=== PATIENT | male | born 1950 | race Caucasian/White ===

== ENCOUNTER → 2016-10-21 | Outpatient (CLI) | payer MEDICARE ==
[~2016-10-21] MED LIST: ASP81EC PO; ATOR20TA50 PO; LISI40TA PO
[2016-10-21 07:51] LABS: Basophils # (auto) 0 uL; Basophils % (auto) 0.2 % (0.0-2.0); Eosinophils # (auto) 0.2 uL; Hematocrit 46.2 % (41.0-53.0); Hemoglobin 15.6 g/dL (13.5-17.5); Lymphocytes # (auto) 1.1 uL; Lymphocytes % (auto) 12.4 % (10.0-50.0); Mean Corpuscular Hemoglobin 30.8 pg (28.0-32.0); Mean Corpuscular Hgb Conc. 33.8 g/dL (32.0-36.0); Mean Corpuscular Volume 91.1 fL (80.0-100.0); Mean Platelet Volume 6.3 fL (7.4-10.4); Monocytes # (auto) 0.6 uL; Monocytes % (auto) 6.3 % (0.0-12.0); Neutrophils % (auto) 79.1 % (37.0-80.0); Platelet Count (auto) 311 10^3/uL (140-450); Red Cell Distribution Width 15.2 % (11.6-16.0); White Blood Cell 8.8 10^3/uL (4.4-10.8)
[2016-10-21 08:09] LABS: Urine Bilirubin Negative (Negative); Urine Color Yellow (Yellow); Urine Glucose Normal (Normal); Urine Ketone Negative (Negative); Urine Nitrite Negative (Negative); Urine RBC 9 /hpf (0 - 3); Urine Squamous Epithelial Cell FEW /hpf (<5); Urine Urobilinogen Normal (Negative); Urine pH 6.5 (5.0-8.0)
[2016-10-21 08:13] LABS: Urine Blood 1+ /uL (Negative)
[2016-10-21 08:18] LABS: BUN/Creatinine Ratio 11.4; Bilirubin, Total 0.7 mg/dL (0.2-1.0); Calcium 8.9 mg/dL (8.5-10.1); Total Protein 7.5 g/dL (6.4-8.2)
== END | disposition home or self-care (01) ==
LOC: LAB 07:24
DX: Z12.11 Encounter for screening for malignant neoplasm of colon (principal); I10 Essential (primary) hypertension; N40.1 Benign prostatic hyperplasia with lower urinary tract symptoms; E78.5 Hyperlipidemia, unspecified
CPT/HCPCS: 36415; 80053; 80061; 81001; 84153; 84443; 85025

== ENCOUNTER 2020-03-24 15:43 | Inpatient (IN) | payer MEDICARE ==
[~2020-03-24] VITALS: Ht 177.8 cm; Wt 76.8 kg
[~2020-03-24 15:43] MED LIST changes: -ASP81EC PO; +ASPI-394 PO; -LISI40TA PO; +LISI40TA11 PO
[2020-03-24 17:10] LABS: Basophils # (auto) 0.1 10 ^3/uL (0-0.2); Basophils % (auto) 1.1 % (0.0-2.0); Eosinophils # (auto) 0.2 10 ^3/uL (0-0.8); Eosinophils % (auto) 2.2 % (0.0-7.0); Hematocrit 46.4 % (41.0-53.0); Hemoglobin 15.2 g/dL (13.5-17.5); Lymphocytes # (auto) 0.8 10 ^3/uL (0.4-5.4); Lymphocytes % (auto) 9.9 % (10.0-50.0); Mean Corpuscular Hemoglobin 30.5 pg (28.0-32.0); Mean Corpuscular Hgb Conc. 32.7 g/dL (32.0-36.0); Mean Corpuscular Volume 93.3 fL (80.0-100.0); Monocytes # (auto) 0.6 10 ^3/uL (0-1.3); Monocytes % (auto) 7.8 % (0.0-12.0); Neutrophils # (auto) 6.4 10 ^3/uL (1.6-8.6); Nucleated Red Blood Cells % 0.1 %; Platelet Count (auto) 254 10^3/uL (140-450); Red Blood Cells 4.97 10^6/uL (4.5-5.90); Red Cell Distribution Width 15.3 % (11.8-14.3); White Blood Cell 8.1 10^3/uL (4.4-10.8)
[2020-03-24 17:29] LABS: Albumin 3.5 g/dL (3.4-5.0); Anion Gap 5 (5-15); Blood Urea Nitrogen 18 mg/dL (7-18); Calcium 8.4 mg/dL (8.5-10.1); Carbon Dioxide 30 mmol/L (21-32); Chloride 108 mmol/L (98-107); Glucose 139 mg/dL (74-106); Potassium 3.7 mmol/L (3.5-5.1); Sodium 143 mmol/L (136-145)
[2020-03-24 17:37] LABS: Alanine Aminotransferase 12 U/L (16-61); Alkaline Phosphatase 79 U/L (45-117); Aspartate Aminotransferase 10 U/L (15-37); BUN/Creatinine Ratio 16.7; Bilirubin, Total 0.6 mg/dL (0.2-1.0); GFR African American 87 mL/min; GFR Non-African American 72 mL/min; Total Protein 7.1 g/dL (6.4-8.2)
[2020-03-24 18:03] LABS: INR 1.03 (0.9-1.15); Partial Thromboplastin Time 28.6 sec (23.0-31.2)
[2020-03-24] MEDS ORDERED: cloNIDine 0.2 mg/24hr 7DAY PATCH TD ONE (19:15)
[2020-03-24] MEDS ORDERED: cloNIDine HCL 0.1 MG TAB PO ONE (20:00)
[2020-03-24] MEDS ORDERED: IODIXANOL 320MG/ML 100ML BTL IV ONE (21:49)
[2020-03-24] MEDS ORDERED: ENALAPRILAT 1.25 MG/ML-1ML VIAL IV ONE (22:00)
[2020-03-24] MEDS ORDERED: ONDANSETRON HCL 4 MG/2 ML VIAL IV PRN (22:00)
[2020-03-24] MEDS ORDERED: ACETAMINOPHEN 325 MG TAB PO PRN (22:00)
[2020-03-24] MEDS ORDERED: MORPHINE SULF INJ 2 MG/ML SYRINGE 1ML IV PRN (22:00)
[2020-03-24] MEDS ORDERED: NITROGLYCERIN 0.4 MG SL TAB SL PRN (22:00)
[2020-03-24] MEDS ORDERED: TEMAZEPAM 15 MG CAP PO PRN (22:00)
[2020-03-24] MEDS ORDERED: IOHEXOL 350 MG/ML 100ML IJ ONE (22:02)
[2020-03-24] MEDS: ATORVASTATIN 20 MG TAB PO SCH (22:40)
[2020-03-24] MEDS: FAMOTIDINE 20 MG TAB PO SCH (22:40)
[2020-03-24] MEDS: cloNIDine HCL 0.1 MG TAB PO PRN (23:51)
[2020-03-25 03:16] LABS: Urine Bacteria NONE SEEN /hpf (None Seen); Urine Blood Negative /uL (Negative); Urine Mucus FEW (None Seen); Urine WBC 9 /hpf (0 - 3)
[2020-03-25] MEDS ORDERED: hydrALAZINE HCL 20 MG/ML VL IV ONE (05:30)
[2020-03-25 08:21] LABS: Basophils # (auto) 0 10 ^3/uL (0-0.2); Basophils % (auto) 0.6 % (0.0-2.0); Eosinophils # (auto) 0.1 10 ^3/uL (0-0.8); Eosinophils % (auto) 1.1 % (0.0-7.0); Hematocrit 46.1 % (41.0-53.0); Hemoglobin 15.1 g/dL (13.5-17.5); Lymphocytes # (auto) 0.7 10 ^3/uL (0.4-5.4); Lymphocytes % (auto) 8.3 % (10.0-50.0); Mean Corpuscular Hemoglobin 30.5 pg (28.0-32.0); Mean Corpuscular Hgb Conc. 32.7 g/dL (32.0-36.0); Mean Corpuscular Volume 93.3 fL (80.0-100.0); Monocytes # (auto) 0.5 10 ^3/uL (0-1.3); Monocytes % (auto) 6.2 % (0.0-12.0); Neutrophils # (auto) 6.7 10 ^3/uL (1.6-8.6); Neutrophils % (auto) 83.8 % (37.0-80.0); Nucleated Red Blood Cells % 0.1 %; Platelet Count (auto) 243 10^3/uL (140-450); Red Blood Cells 4.94 10^6/uL (4.5-5.90); Red Cell Distribution Width 15.3 % (11.8-14.3)
[2020-03-25 08:41] LABS: Calcium 8.9 mg/dL (8.5-10.1); Potassium 3.7 mmol/L (3.5-5.1)
[2020-03-25 08:42] LABS: BUN/Creatinine Ratio 17.6
[2020-03-25] MEDS: FAMOTIDINE 20 MG TAB PO SCH ×2 (10:00→22:36)
[2020-03-25] MEDS ORDERED: ASPirin 81 mg TAB PO SCH (10:00)
[2020-03-25] MEDS ORDERED: LISINOPRIL 20 MG TAB PO SCH (10:00)
[2020-03-25] MEDS ORDERED: ENOXAPARIN SOD 40 MG/0.4 ML SYRINGE SC SCH (10:00)
[2020-03-25] MEDS ORDERED: METOPROLOL TARTRATE 50 MG TAB PO ONE (12:30)
[2020-03-25 12:59] LABS: Cholesterol 203 mg/dL (< 200)
[2020-03-25 13:00] VITALS: BP 172/85
[2020-03-25 13:02] LABS: HDL Cholesterol 39 mg/dL (40-59); LDL Cholesterol 156 mg/dL (< 100); Triglycerides 110 mg/dL (< 150)
--- NOTE | 2020-03-25 13:03 | NUR ---
Patient Arrived Patient arrived to unit. No signs of distress at this time. Respirations even and unlabored. Safety precautions in place, patient encouraged to call PRN. Will continue to monitor.
--- NOTE | 2020-03-25 13:30 | NUR ---
US Received call from [facility], currently unable to perform carotid ultrasound, recommends CT angio at this time. Will notify MD to clarify orders.
[2020-03-25 14:00] VITALS: BP 172/85
[2020-03-25] MEDS: cloNIDine HCL 0.1 MG TAB PO PRN (14:00)
--- NOTE | 2020-03-25 14:15 | NUR ---
ECHO Echo at bedside.
--- NOTE | 2020-03-25 14:28 | NUR ---
Called MD Left message for Dr. Carpio regarding carotid ultrasound. Will wait for new orders.
--- NOTE | 2020-03-25 14:39 | NUR ---
Regarding Carotid Ultrasound Per , clarified carotid ultrasound: spoke with Farhana, medical technician assistant. Per Farhana, currently unable to perform carotid ultrasound due to not having a vascular neurologist at this time, currently recommend CT angio for arterial studies.
[2020-03-25 15:00] VITALS: BP 170/97
[2020-03-25] MEDS ORDERED: cloNIDine HCL 0.1 MG TAB PO PRN (15:00)
--- NOTE | 2020-03-25 16:09 | NUR ---
New IV New IV started on right forearm, 18 gauge. Blood return noted, flushes easily. Patient tolerated well, no signs of distress at this time. Respirations even and unlabored. Will continue to monitor.
--- NOTE | 2020-03-25 16:10 | NUR ---
Discontinued IV Discontinued left AC 18 gauge due to signs of infiltration and leaking. Patient tolerated well. Safety precautions in place, call light within reach, patient encouraged to call as needed; bed alarm set, patient encouraged to call before attempting to ambulate to restroom. Patient verbalized understanding. Will continue to monitor.
[2020-03-25 17:00] VITALS: BP 164/79
--- NOTE | 2020-03-25 17:10 | NUR ---
BP Reassessed blood pressure. Currently 144/73.
--- NOTE | 2020-03-25 17:25 | NUR ---
Med Rec Patient unable to provide list of home medications at this time. States he currently does not take medications but has empty pill bottles of prescriptions in his car.
--- NOTE | 2020-03-25 19:20 | NUR ---
Opening shift note Assumed care of patient from day shift RNMaddy. Patient A&Ox4, respirations even with audible chest congestion. Patient stated that he has some productive coughing at times and produces a minor amount of white secretions. Patient denies any pain or difficulty breathing at this time and has no s/s of distress. Discussed POC and the need to call for assistance should the patient need to use the restroom. Patient verbalized understanding. Bed in lowest locked position with two side rails up, call light within reach. Bed alarm set. Will continue to monitor Q1hr and PRN.
--- NOTE | 2020-03-25 20:23 | NUR ---
Received call from Jeni in Ultrasound Jeni phoned to relay that arterial US is on diversion until next week and that the patients US has been cancelled. She also suggested to use another modality such as a cat scan or MRI. Will relay message to morning shift.
--- NOTE | 2020-03-25 20:48 | NUR ---
Patient trying to go to his car Bed alarm sounded, found patient rising from bed with his keys in hand. Patient stated that he was going to his car. Discussed with the patient that his car was in the city of [place] and not in [facility] parking lot. Patient stated that he was going to walk to [place] to get his car. Educated patient that his medical status was not stable and that he would be placing himself in danger of falling or further harm. Discussed signing an AMA and the risks/dangers of leaving. Patient stated that he would call for assistance and that he would not leave tonight. Will continue to monitor Q1hr and PRN. Bed alarm on.
[2020-03-25 22:00] VITALS: BP 129/72
[2020-03-25] MEDS ORDERED: METOPROLOL TARTRATE 50 MG TAB PO SCH (22:00)
[2020-03-25] MEDS: ATORVASTATIN 20 MG TAB PO SCH (22:35)
--- NOTE | 2020-03-25 22:49 | NUR ---
PT REFUSED NOC BIPAP AT THIS TIME. SPO2 93% ON RA, HR 78. PT DENIES HAVING PREVIOUSLY USED CPAP OR BIPAP. NO RESPIRATORY DISTRESS NOTED. WILL CONTINUE TO MONITOR.
--- NOTE | 2020-03-25 23:44 | NUR ---
PATIENT LEFT AMA Patient stated that he needed to go to the store to buy cigarettes and to locate his vehicle. I advised him that he was not medically stable and discussed the risks/dangers of leaving without seeing the doctor or following the physicians plan of care. He was also educated on signing out against medical advice/treatment. The patient stood up and said that he was leaving and that he did not care. I stated that he could not leave until the IV and ekg monitor were removed and that he needed to sign the AMA documentation. The patient continued to state that he was leaving and tried to push past me. Security was called to the room and the patients IV and telemetry box were removed. The patient became combative with security when he was asked to sign the AMA. The patient refused to sign the AMA and continued to be combative with security. The patient calmed down when he was told that he could leave but to sit calmly in the wheelchair to be taken downstairs. The patient agreed but still refused to sign the AMA form. Patient departed the floor at 2345.
--- NOTE | 2020-03-26 00:21 | NUR ---
Noted that patient refused to sign on the AMA document Obtained signature of second RN on duty who witnessed the patient become combative and refusing to sign the AMA.
--- NOTE | 2020-03-26 00:53 | NUR ---
Paged EVS for room 292A
--- NOTE | 2020-03-27 10:14 | NUR ---
Weekend production engineer track 03/25/20-I did not receive a page regarding the social service consult on this patient.
== END 2020-03-25 23:46 | disposition left against medical advice (07) | DRG 69 ==
LOC: EDBD 15:43 → ER 15:43 → TELE 15:44 → TELE-WESTW 03-25 13:08
PROVIDERS: ADMIT Nurse Practitioner; ATTEND Nurse Practitioner
DX: G45.9 Transient cerebral ischemic attack, unspecified (principal); I16.0 Hypertensive urgency; E78.00 Pure hypercholesterolemia, unspecified; F17.210 Nicotine dependence, cigarettes, uncomplicated; I10 Essential (primary) hypertension; Z53.29 Procedure and treatment not carried out because of patient's decision for other reasons; M54.9 Dorsalgia, unspecified; G89.29 Other chronic pain; Z79.82 Long term (current) use of aspirin; Z82.3 Family history of stroke; Z82.49 Family history of ischemic heart disease and other diseases of the circulatory system; Z86.73 Personal history of transient ischemic attack (TIA), and cerebral infarction without residual deficits; Z91.19 Patient's noncompliance with other medical treatment and regimen; Z71.6 Tobacco abuse counseling
CPT/HCPCS: 36415; 70450; 71045; 71275; 80048; 80053; 80061; 81001; 83880; 84443; 84484; 85025; 85379; 85610; 85730; 93005; 93306; 93970; 99291; G0378; Q9967